=== PATIENT | female | born 1975 | race Caucasian/White ===

== ENCOUNTER 2020-02-20 07:37 | Outpatient (CLI) | payer OTHER, SELFPAY ==
[2020-02-20 07:56] LABS: Basophils Absolute Auto 0.1 K/mm3 (0.0-0.1); Eosinophils Absolute Auto 0.2 K/mm3 (0-0.3); Eosinophils Percent Auto 2.9 % (0-4.4); Hematocrit 42.9 % (37.0-47.0); Hemoglobin 14.4 g/dL (12.0-15.0); Lymphocytes Absolute Auto 2.62 K/mm3 (0.9-3.2); Lymphocytes Percent Auto 38.2 % (18.3-44.2); Mean Corpuscular HGB Conc 33.6 g/dl (32-36); Mean Corpuscular Hemoglobin 32.1 pg (26-34); Mean Corpuscular Volume 95.5 fl (80-100); Mean Platelet Volume 9.7 fl (7.4-10.4); Monocytes Absolute Auto 0.5 K/mm3 (0.1-0.6); Monocytes Percent Auto 7.6 % (2.6-8.5); Neutrophils Absolute Auto 3.4 K/mm3 (1.3-6.7); Neutrophils Percent Auto 50.3 % (45.5-73.1); Platelet Count Result 288 k/mm3 (150-375); Red Blood Count 4.49 M/mm3 (4.2-5.4); Red Cell Distribution Width 12.5 % (11.5-14.5); White Blood Count 6.9 K/mm3 (4.5-10.0)
[2020-02-20 08:08] LABS: Potassium 4.1 mmol/L (3.4-5.0)
[2020-02-20 08:19] LABS: LDL Cholesterol Direct 86 mg/dL
[2020-02-20 08:24] LABS: T4 Thyroxine 9.81 ug/dL (5.53-11.0)
[2020-02-20 08:37] LABS: Alanine Aminotransferase 11 U/L (4-35); Albumin Level 4.4 g/dL (3.5-5.1); Alkaline Phosphatase 72 U/L (38-126); Anion Gap 6 mmol/L (8-16); Aspartate Amino Transferase 20 U/L (14-36); Bilirubin,Total 0.5 mg/dL (0.2-1.3); Blood Urea Nitrogen 10 mg/dL (7-17); Calcium 9.4 mg/dL (8.4-10.2); Carbon Dioxide 29 mmol/L (22-30); Chloride 103 mmol/L (98-107); Cholesterol 161 mg/dL (0-200); Estimated Glomerular Filt Rate > 60; Glucose 100 mg/dL (65-105); HDL Direct 47 mg/dL; Sodium 138 mmol/L (137-145); Triglycerides 92 mg/dL (<150)
[2020-02-20 08:58] LABS: Vitamin D 25 Hydroxy 34.2 ng/mL
[2020-02-28 23:57] LABS: Estradiol, Ultrasensitive <2 pg/mL
== END 2020-02-20 07:38 | disposition home or self-care (01) ==
LOC: ANHLAB 07:39
PROVIDERS: PCP Family Medicine; Visit Provider Obstetrics & Gynecology
DX: R23.2 Flushing (principal); Z78.0 Asymptomatic menopausal state
CPT/HCPCS: 36415; 80053; 80061; 82306; 82670; 84436; 84443; 85025

== ENCOUNTER 2020-08-14 07:12 | Outpatient (CLI) | payer OTHER, SELFPAY ==
--- NOTE | ~2020-08-14 | MM_ITS ---
EXAMINATION: MM screening trace BI w koffi HISTORY: Screening mammogram TECHNIQUE: Craniocaudal and mediolateral oblique 3-D tomosynthesis images were obtained and synthetic 2-D images were generated. Bilateral rotated lateral cc views. CAD analysis was submitted and interp reted. COMPARISON: 05/10/2019 bilateral digital screening mammogram 10/06/2016 ultrasound-guided left cyst aspiration 09/08/2016 bilateral diagnostic digital mammogram and bilateral Limited breast ultrasound examination BREAST PARENCHYMAL COMPOSITION: The breasts are heterogeneously dense, which may obscure small masses . FINDINGS: There is a biopsy marker on the left. History of prior benign left breast biopsy and right cyst aspiration. There is no evidence of suspicious mass, calcification, or architectural distortion to suggest malignancy in either breast. There has been no suspicious interval change. IMPRESSION: 1. No mammographic evidence of malignancy. 2. Recommend routine screening mammography in one year. BI-RADS Category 1: Negative Reviewed, dictated and finalized at location A. 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
== END 2020-08-14 07:13 | disposition home or self-care (01) ==
LOC: ANHIMG 07:14
PROVIDERS: PCP Family Medicine; Visit Provider Obstetrics & Gynecology
DX: Z12.31 Encounter for screening mammogram for malignant neoplasm of breast (principal)
CPT/HCPCS: 77063; 77067

== ENCOUNTER 2021-02-17 11:45 | Outpatient (CLI) | payer OTHER, SELFPAY ==
--- NOTE | ~2021-02-17 | MMUS_ITS ---
EXAMINATION: MM diagnostic trace LT w koffi, US breast LT complete HISTORY: Left nipple pain with yellow discharge TECHNIQUE: Additional 3-D tomosynthesis images of the left breast were performed and synthetic 2-D im ages were generated. CAD analysis was submitted and interpreted. High resolution complete left breast ultrasound was performed. COMPARISON: Comparison to multiple prior studies sequentially, with oldest reviewed study dated 09/23. BREAST PARENCHYMAL COMPOSITION: The breasts are heterogenously dense, which may obscure small masses. FINDINGS: MAMMOGRAPHIC FINDINGS: There are no suspicious masses, calcifications or architectural distortion in the left breast to sugg est malignancy. ULTRASOUND: Complete left breast ultrasound: Normal heterogeneous echotexture without focal solid or cystic mass. IMPRESSION: 1. No evidence for malignancy in the left breast. Follow-up clinical management for nipple discharge recommended. 2. Routine yearly screening mammogram and regular clinical breast examination are recommended. BI-RADS Category 1: Negative Reviewed, dictated and finalized at location A. IMPRESSION: 1. No evidence for malignancy in the left breast. Follow-up clinical management for nipple discharge recommended. 2. Routine yearly screening mammogram and regular clinical breast examination a re recommended. BI-RADS Category 1: Negative
== END 2021-02-17 11:46 | disposition home or self-care (01) ==
LOC: ANHIMG 11:46
PROVIDERS: PCP Family Medicine; Visit Provider Surgery
DX: N64.4 Mastodynia (principal); N64.52 Nipple discharge
CPT/HCPCS: 76641; 77061; 77065; G0279

== ENCOUNTER 2021-09-16 08:30 | Outpatient (CLI) | payer OTHER, SELFPAY ==
--- NOTE | 2021-09-16 11:30 | NEURO_ITS ---
Impression: # Complains of intermittent numbness of upper and lower extremities. # No Carpal Tunnel Syndrome or ulnar neuropathy. # Normal nerve conduction study of upper and lower extremities. # Normal needle/EMG exam. # Clinical correlation recommended. Nerve Conduction Studies Anti Sensory Summary Table Stim Site NR Peak (ms) P-T Amp (?V) Site1 Site2 Delta-P (ms) Dist (cm) Felice (m/s) Left Median Anti Sensory (2-3nd Digit) Wrist 3.0 96.3 Wrist 2-3nd Digit 3.0 14.0 47 Wrist 3.1 96.2 Wrist 2-3nd Digit 3.0 14.0 47 Right Median Anti Sensory (2-3nd Digit) Wrist 2.6 57.7 Wrist 2-3nd Digit 2.6 14.0 54 Wrist 2.8 90.3 Wrist 2-3nd Digit 2.6 14.0 54 Left Radial Anti Sensory (Base 1st Digit) Wrist 2.3 47.7 Wrist Base 1st Digit 2.3 0.0 Right Radial Anti Sensory (Base 1st Digit) Wrist 2.4 62.6 Wrist Base 1st Digit 2.4 0.0 Left Sup Fibular Anti Sensory (Ant Lat Mall) 14 cm 3.6 17.2 14 cm Ant Lat Mall 3.6 16.0 44 Right Sup Fibular Anti Sensory (Ant Lat Mall) 14 cm 3.2 7.4 14 cm Ant Lat Mall 3.2 16.0 50 Left Sural Anti Sensory (Lat Mall) Calf 3.9 17.2 Calf Lat Mall 3.9 16.0 41 Right Sural Anti Sensory (Lat Mall) Calf 3.5 15.8 Calf Lat Mall 3.5 16.0 46 Left Ulnar Anti Sensory (5th Digit) Wrist 2.9 88.8 Wrist 5th Digit 2.9 14.0 48 Right Ulnar Anti Sensory (5th Digit) Wrist 3.0 53.0 Wrist 5th Digit 3.0 14.0 47 Motor Summary Table Stim Site NR Onset (ms) O-P Amp (mV) Site1 Site2 Delta-0 (ms) Dist (cm) Fleice (m/s) Left Median Motor (Abd Poll Brev) Wrist 3.6 8.2 Elbow Wrist 5.4 30.0 56 Elbow 9.0 3.4 Right Median Motor (Abd Poll Brev) Wrist 2.6 6.6 Elbow Wrist 5.0 29.0 58 Elbow 7.6 4.6 Left Peroneal Motor (Vastus Med) Ankle 4.3 3.1 Popit Ankle 8.5 42.0 49 Popit 12.8 2.6 Right Peroneal Motor (Vastus Med) Ankle 5.2 3.0 Popit Ankle 8.1 38.0 47 Popit 13.3 2.3 Left Tibial Motor (Abd [place]os Santos Brev) Ankle 4.5 5.7 Knee Ankle 9.6 43.0 45 Knee 14.1 3.8 Right Tibial Motor (Abd [place] Brev) Ankle 5.4 10.5 Knee Ankle 9.2 42.0 46 Knee 14.6 5.8 Left Ulnar Motor (Abd Dig Minimi) Wrist 2.8 6.1 A Elbow Wrist 4.8 29.0 60 A Elbow 7.6 6.2 Right Ulnar Motor (Abd Dig Minimi) Wrist 2.7 9.5 A Elbow Wrist 5.2 30.0 58 A Elbow 7.9 8.2 F Wave Studies NR F-Lat (ms) L-R F-Lat (ms) Left Median (Mrkrs) (Abd Poll Brev) 27.94 1.51 Right Median (Mrkrs) (Abd Poll Brev) 26.43 1.51 Left Peroneal (Mrkrs) (EDB) 53.67 1.27 Right Peroneal (Mrkrs) (EDB) 54.94 1.27 Left Tibial (Mrkrs) (Abd Hallucis) 54.97 0.34 Right Tibial (Mrkrs) (Abd Hallucis) 55.32 0.34 Left Ulnar (Mrkrs) (Abd Dig Min) 26.16 0.99 Right Ulnar (Mrkrs) (Abd Dig Min) 25.17 0.99 EMG Side Muscle Nerve Root Ins Act Fibs Amp Dur Recrt Comment Right 1stDorInt Ulnar C8-T1 Nml Nml Nml Nml Nml Right Ext Indicis Radial (Post Int) C7-8 Nml Nml Nml Nml Nml Right Ext Digitorum Radial (Post Int) C7-8 Nml Nml Nml Nml Nml Right BrachioRad Radial C5-6 Nml Nml Nml Nml Nml Right PronatorTeres Median C6-7 Nml Nml Nml Nml Nml Right Abd Poll Brev Median C8-T1 Nml Nml Nml Nml Nml Right AntTibialis Dp Br Fibular
== END 2021-09-16 08:31 | disposition home or self-care (01) ==
PROVIDERS: PCP Family Medicine; Visit Provider Family Medicine
DX: R20.0 Anesthesia of skin (principal); M54.2 Cervicalgia
CPT/HCPCS: 95886; 95913

== ENCOUNTER 2022-02-26 09:01 | Outpatient (CLI) | payer OTHER, SELFPAY ==
[2022-02-26 09:37] LABS: Basophils Absolute Auto 0.1 K/mm3 (0.0-0.1); Basophils Percent Auto 0.5 % (0.2-1.2); Eosinophils Absolute Auto 0.1 K/mm3 (0-0.3); Eosinophils Percent Auto 1.5 % (0-4.4); Hematocrit 43.1 % (37.0-47.0); Hemoglobin 14.2 g/dL (12.0-15.0); Immature Granulocyte Absolute 0.02 K/mm3 (0.00-0.031); Immature Granulocyte Percent A 0.2 % (0-0.5); Lymphocytes Absolute Auto 2.84 K/mm3 (0.9-3.2); Lymphocytes Percent Auto 29.7 % (18.3-44.2); Mean Corpuscular HGB Conc 32.9 g/dl (32-36); Mean Corpuscular Hemoglobin 32.5 pg (26-34); Mean Corpuscular Volume 98.6 fl (80-100); Mean Platelet Volume 9.5 fl (7.4-10.4); Monocytes Absolute Auto 0.5 K/mm3 (0.1-0.6); Monocytes Percent Auto 5.5 % (2.6-8.5); Neutrophils Percent Auto 62.6 % (45.5-73.1); Platelet Count Result 257 k/mm3 (150-375); Red Blood Count 4.37 M/mm3 (4.2-5.4); Red Cell Distribution Width 13.2 % (11.5-14.5); White Blood Count 9.6 K/mm3 (4.5-10.0)
[2022-02-26 10:15] LABS: Alanine Aminotransferase 14 U/L (6-35); Albumin Level 4.6 g/dL (3.5-5.1); Alkaline Phosphatase 70 U/L (38-126); Anion Gap 7 mmol/L (8-16); Aspartate Amino Transferase 21 U/L (14-36); Bilirubin,Total 0.3 mg/dL (0.2-1.3); Blood Urea Nitrogen 10 mg/dL (7-17); Calcium 9.3 mg/dL (8.4-10.2); Carbon Dioxide 28 mmol/L (22-30); Chloride 104 mmol/L (98-107); Estimated Glomerular Filt Rate > 60; Glucose 95 mg/dL (65-110); Potassium 4.2 mmol/L (3.4-5.0); Sodium 139 mmol/L (137-145)
[2022-02-26 10:17] LABS: Cholesterol 155 mg/dL (0-200); HDL Direct 64 mg/dL; Triglycerides 90 mg/dL (<150)
[2022-02-26 10:29] LABS: LDL Cholesterol Direct 73 mg/dL
[2022-02-26 10:38] LABS: Hepatitis C Virus Antibody Negative (Negative)
[2022-03-03 13:46] LABS: Vitamin D 1,25 (OH)2 Total 48 pg/mL (18-72); Vitamin D2 1,25 (OH)2 <8 pg/mL; Vitamin D3 1,25 (OH)2 48 pg/mL
== END 2022-02-26 09:02 | disposition home or self-care (01) ==
PROVIDERS: PCP Student in an Organized Health Care Education/Training Program; Visit Provider Student in an Organized Health Care Education/Training Program
DX: Z00.00 Encounter for general adult medical examination without abnormal findings (principal); Z13.220 Encounter for screening for lipoid disorders; Z13.0 Encounter for screening for diseases of the blood and blood-forming organs and certain disorders involving the immune mechanism; Z13.228 Encounter for screening for other metabolic disorders; Z13.29 Encounter for screening for other suspected endocrine disorder; Z11.59 Encounter for screening for other viral diseases
CPT/HCPCS: 36415; 80053; 80061; 82652; 84443; 85025; 86803

== ENCOUNTER 2022-05-20 14:41 | Outpatient (CLI) | payer OTHER, SELFPAY ==
--- NOTE | ~2022-05-20 | DEXA_ITS ---
Bone Density Report Name: EV KENT Age: 46 Sex: Female Ethnicity: White Date of : 1975 Indication: postmenopausal; height loss; hysterectomy; Referring Provider: OTIS SNYDER Study: Bone densitometry was performed. Exam Date: May 20, 2022 Accession number: [id number] Bone Density: Region BMD T-score Z-score Classification AP Spine(L1-L4) 0.789 -2.3 -1.9 Osteopenia Femoral Neck (Left) 0.725 -1.1 -0.7 Osteopenia Total Hip (Left) 0.756 -1.5 -1.2 Osteopenia Femoral Neck (Right) 0.729 -1.1 -0.6 Osteopenia Total Hip (Right) 0.771 -1.4 -1.1 Osteopenia Total Hip Mean 0.764 -1.5 -1.2 Osteopenia World Health Organization criteria for BMD impression classify patients as: Normal (T-score at or above -1.0), Osteopenia (T-score between -1.0 and -2.5), or Osteoporosis (T-score at or below -2.5). 10-year Fracture Risk(1): Major Osteoporotic Fracture 2.5% Hip Fracture 0.3% Reported Risk Factors: [place] (), Neck BMD=0.725, BMI=18.9, smoking (1) FRAX(R) Version 3.08. Fracture probability calculated for an untreated patient. Fracture probability may be lower if the patient has received treatment. Clinical Information Provided by Patient: Smokes Has the following medical conditions: Hysterectomy Patient maximum height was 69.5 Drinks caffeinated beverages Onset of menses at age 12 Number of children 1 Impression: The patient has low bone mass, based on the Total Spine T-score. The patient has an estimated ten-year risk of hip fracture of 0.3% and an estimated ten-year risk of major fracture of 2.5%, based on the WHO FRAX algorithm. The patient has risk factors, including: smoking. Discussion: BONE DENSITY IS LOW AT ONE OR MORE SKELETAL SITES. This patient's lowest T-score is low at one or more skeletal sites. It meets the World Health Organization's (WHO) criteria for ?low bone mass? (T-score between -1.0 and -2.5). The patient's 10-year risk of fracture as calculated by FRAX is less than the threshold where pharmacological therapy is recommended by the National Osteoporosis Foundation (NOF). However, all treatment decisions require clinical judgment and consideration of individual patient factors, including patient preferences, comorbidities, previous drug use, risk factors not captured in the FRAX model (e.g., frailty, falls, vitamin D deficiency, increased bone turnover, interval significant decline in bone density) and possible under or overestimation of fracture risk by FRAX. The patient should follow a healthful lifestyle (good nutrition with adequate calcium and vitamin D, and appropriate weight-bearing exercise). Follow-Up: Consider repeating this study in 2 to 3 years to reassess this patient's status, or sooner if there is some new clinical indication.
== END 2022-05-20 14:42 | disposition home or self-care (01) ==
PROVIDERS: PCP Student in an Organized Health Care Education/Training Program; Visit Provider Obstetrics & Gynecology
DX: R29.890 Loss of height (principal); M85.88 Other specified disorders of bone density and structure, other site; M85.852 Other specified disorders of bone density and structure, left thigh; M85.851 Other specified disorders of bone density and structure, right thigh
CPT/HCPCS: 77080

== ENCOUNTER 2022-05-22 14:06 | Outpatient (CLI) | payer OTHER, SELFPAY ==
--- NOTE | ~2022-05-22 | MM_ITS ---
EXAMINATION: MM screening trace BI w koffi HISTORY: Screening TECHNIQUE: Craniocaudal and mediolateral oblique 3-D tomosynthesis images were obtained and synthetic 2-D images were generated. CAD analysis was submitted and interpreted. COMPARISON: Comparison to multiple prior studies sequentially, with oldest reviewed study dated 09/23. BREAST PARENCHYMAL COMPOSITION: The breasts are extremely dense, which lowers the sensitivity of mamm ography. FINDINGS: There is no evidence of suspicious mass, calcification, or architectural distortion to sugg est malignancy in either breast. There has been no suspicious interval change. IMPRESSION: 1. No mammographic evidence of malignancy. 2. Recommend routine screening mammography in one year. BI-RADS Category 1: Negative Reviewed, dictated and finalized at location A. 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
== END 2022-05-22 14:07 | disposition home or self-care (01) ==
PROVIDERS: PCP Student in an Organized Health Care Education/Training Program; Visit Provider Obstetrics & Gynecology
DX: Z12.31 Encounter for screening mammogram for malignant neoplasm of breast (principal)
CPT/HCPCS: 77063; 77067

== ENCOUNTER 2022-11-22 13:37 | Outpatient (CLI) | payer OTHER, SELFPAY ==
--- NOTE | ~2022-11-22 | XR_ITS ---
EXAM: [id number] DATE: 11/22/2022 13:57 HISTORY: CERVICAL RADICULOPATHY, NON-TRAUMA . COMPARISON: None available. FINDINGS: Craniocervical association and atlantoaxial joint are aligned. No prevertebral soft tissue swelling. Vertebral body heights are maintained. Mild reversal of the cervical lordosis, centered at C5-6. Mild disc space narrowing at C6-7 and C7-T1. Mild multilevel facet arthropathy. IMPRESSION: Mild degenerative disc disease in the lower cervical spine. Mild multilevel cervical spin e facet arthropathy. Reviewed, dictated and finalized at location K. IMPRESSION: Mild degenerative disc disease in the lower cervical spine. Mild mu ltilevel cervical spine facet arthropathy.
== END 2022-11-22 13:38 | disposition home or self-care (01) ==
LOC: ANHIMG 13:41
PROVIDERS: PCP Student in an Organized Health Care Education/Training Program; Visit Provider Student in an Organized Health Care Education/Training Program
DX: M50.123 Cervical disc disorder at C6-C7 level with radiculopathy (principal); M50.13 Cervical disc disorder with radiculopathy, cervicothoracic region
CPT/HCPCS: 72040

== ENCOUNTER 2022-12-14 13:42 | Outpatient (CLI) | payer OTHER, SELFPAY ==
--- NOTE | ~2022-12-14 | MR_ITS ---
EXAMINATION: MR cervical spine wo con DATE: 12/14/2022 14:14 INDICATION: Cervical radiculopathy. TECHNIQUE: Magnetic resonance imaging (MRI) of the cervical spine was performed without intravenous c ontrast. Sequences included sagittal T2-weighted FSE, sagittal T2-weighted FS FSE, sagittal T1-weight ed FSE, axial MERGE, and axial T2-weighted FSE. COMPARISON: Cervical spine radiographs 11/22/2022 FINDINGS: There is 17 degrees levoscoliosis of cervicothoracic spine. Vertebral body heights are norm al. There is moderately decreased disc height at C6-C7. The spinal cord signal intensity is normal. T he following disc levels are specifically discussed: C2-C3: The disc does not extend beyond the endplate margin. There is no uncovertebral joint osteoarth ritis. There is mild bilateral facet joint osteoarthritis. There is no neural foraminal stenosis. The re is no central canal stenosis. C3-C4: The disc does not extend beyond the endplate margin. There is no uncovertebral joint osteoarth ritis. There is mild bilateral facet joint osteoarthritis. There is no neural foraminal stenosis. The re is no central canal stenosis. C4-C5: The disc does not extend beyond the endplate margin. There is no uncovertebral joint osteoarth ritis. There is mild facet joint osteoarthritis. There is no neural foraminal stenosis. There is no c entral canal stenosis. C5-C6: The disc does not extend beyond the endplate margin. There is mild left uncovertebral joint os teoarthritis. There is mild left facet joint osteoarthritis. There is mild left neural foraminal sten osis. There is no central canal stenosis. C6-C7: There is a central extrusion. There is mild bilateral uncovertebral joint osteoarthritis. Ther e is mild right and moderate left facet joint osteoarthritis. There is mild bilateral neural foramina l stenosis. There is mild central canal stenosis. C7-T1: The disc does not extend beyond the endplate margin. There is no uncovertebral joint osteoarth ritis. There is severe right and moderate left facet joint osteoarthritis. There is mild bilateral ne ural foraminal stenosis. There is no central canal stenosis. IMPRESSION: 1. Mild cervical spondylosis. 2. Cervicothoracic levoscoliosis. Reviewed, dictated and finalized at location E.
== END 2022-12-14 13:43 | disposition home or self-care (01) ==
PROVIDERS: PCP Student in an Organized Health Care Education/Training Program; Visit Provider Student in an Organized Health Care Education/Training Program
DX: M54.12 Radiculopathy, cervical region (principal); M43.02 Spondylolysis, cervical region; M41.83 Other forms of scoliosis, cervicothoracic region
CPT/HCPCS: 72141

== ENCOUNTER 2023-03-18 03:39 | Day surgery (SDC) | payer OTHER, SELFPAY ==
[2023-03-08 10:05] VITALS: BMI 21.4
[2023-03-18 10:11] VITALS: BP 102/53; PULSE 73; RESP 16; TEMP 36.2; O2SAT 99
[2023-03-18] MEDS: LACTATED RINGERS 1,000 ML 150 ML IV CONT (10:18)
--- NOTE | 2023-03-18 10:32 | PM.HPGS ---
History of Present Illness History of Present Illness Consent: Risks, benefits, and alternatives have been discussed and questions answered. Patient agrees to proceed with procedure. Chief complaint: hx. colon polyps, personal h/o adenomatous polyp Narrative: Vernell Dwyer is a 47 year old female Presents for screening colonoscopy. Patient's current weight appetite and bowel movements are normal. She denies abdominal pain. She has had no bleeding. Patient has a prior history of colon polyps. In 2005 had adenomatous colon polyp removed. Most recent colonoscopy was 2015. At that time of benign hyperplastic polyp was identified. Patient reports that her weight appetite bowel movements are normal. She denies abdominal pain. She has had no bleeding. Family history noncontributory. Review of Systems Review of Systems: Review of systems noncontributory. FOR[facility]LY [facility] Past Medical History Medical History (Updated 03/18/23 @ 10:34 by Juvenal Garcia MD) Anxiety Vaginal delivery Surgical History Surgical History History of breast biopsy History of tonsillectomy and adenoidectomy History of total hysterectomy Family History Family History Grandparent Hypertension Mother Family history of diabetes mellitus in first degree relative Other Diabetes mellitus Family history of allergic disorder Family history of arthritis Family history of cardiovascular disease Family history of malignant neoplasm Family history of malignant neoplasm of breast Family history of malignant neoplasm of male breast Family history of neuropathy Family history of osteoporosis Social History Social History Smoking packs per day: 0.25 Smoking cigarettes per day: 5.0 Years smoked: 15 Smoking pack-years: 3.75 Smoking status: Former smoker Tobacco type: cigarettes Second hand tobacco smoke exposure: No Smoking end date: 06/06/05 Alcohol intake: current Alcohol use details: very rare use Substance use: never Substance use type: does not use Living arrangements: alone Spiritual care concerns: No Meds Home Medications and Allergies Home Medications Medication Instructions Recorded Confirmed Type alprazolam 0.5 mg tablet (Xanax) 0.5 mg PO QHS PRN Anxiety 04/08/21 03/08/23 History loratadine 10 mg tablet (Claritin) 10 mg PO DAILY 04/08/21 03/08/23 History escitalopram oxalate 10 mg tablet 10 mg PO DAILY 05/12/22 03/08/23 History (Lexapro) estradiol 2 mg tablet 2 mg PO DAILY #90 tabs 06/03/22 03/08/23 Rx ibuprofen 400 mg tablet 400 mg PO BID 03/08/23 03/08/23 History Allergies Allergy/AdvReac Type Severity Reaction Status Date / Time Penicillins Allergy Unknown Unknown Verified 03/18/23 10:10 Sulfa (Sulfonamide Allergy Unknown Unknown Verified 03/18/23 10:10 Antibiotics) sulfanilamide Allergy Unknown Unknown Verified 03/18/23 10:10 CHAIREZ---ANAPHYLAXIS Allergy Severe ANAPHYLAXIS Uncoded 03/18/23 10:10 Vital Signs Vital Signs - 24 hr 03/18/23 10:11 Temperature 97.2 F L Pulse Rate 73 Respiratory Rate 16 Blood Pressure 102/53 L Pulse Oximetry 99 Oxygen Delivery Room Air Exam Narrative: Physical exam reveals patient to be alert. Vital signs stable. HEENT exam is unremarkable. Patient is anicteric. Lungs are clear to auscultation and percussion. Heart is without murmur or extra sounds. Abdomen bowel sounds are present soft nontender with no Organomegaly. Digital external rectal exam normal. Assessment and Plan Assessment and plan (1) History of colon polyps: Code(s): Z86.010 - Personal history of colonic polyps Status: Acute Assessment and Plan: Patient has a history of colon polyps. Plan for surveillance colonoscopy now and consider this at 5 year intervals in the fu
--- NOTE | 2023-03-18 11:08 | WPDANESEPPF ---
Anes - Initial Pre Proc Eval Procedure: Operation Date: 03/18/23 10:30 Proposed Procedures p Colonoscopy - Juvenal Garcia MD Date/Time: 03/18/23 11:08 Surgeon: Juvenal Garcia MD Pre Op Diagnosis: hx. colon polyps, personal h/o adenomatous polyp Patient Data Age: 47 Gender: F Height: 1.75 m Weight: 64.3 kg Last Vital Signs Temp 97.2 F L 03/18/23 10:11 Pulse 73 03/18/23 10:11 Resp 16 03/18/23 10:11 BP 102/53 L 03/18/23 10:11 Pulse Ox 99 03/18/23 10:11 O2 Del Method Room Air 03/18/23 10:11 Allergies Allergy/AdvReac Type Severity Reaction Status Date / Time Penicillins Allergy Unknown Unknown Verified 03/18/23 10:10 Sulfa (Sulfonamide Allergy Unknown Unknown Verified 03/18/23 10:10 Antibiotics) sulfanilamide Allergy Unknown Unknown Verified 03/18/23 10:10 CHAIREZ---ANAPHYLAXIS Allergy Severe ANAPHYLAXIS Uncoded 03/18/23 10:10 Home Medications Medication Instructions Recorded Confirmed Type alprazolam 0.5 mg tablet (Xanax) 0.5 mg PO QHS PRN Anxiety 04/08/21 03/08/23 History loratadine 10 mg tablet (Claritin) 10 mg PO DAILY 04/08/21 03/08/23 History escitalopram oxalate 10 mg tablet 10 mg PO DAILY 05/12/22 03/08/23 History (Lexapro) estradiol 2 mg tablet 2 mg PO DAILY #90 tabs 06/03/22 03/08/23 Rx ibuprofen 400 mg tablet 400 mg PO BID 03/08/23 03/08/23 History Patient hx anesthesia problems: none Family hx anesthesia problems: none Results Review: All pre-operative results and documents have been reviewed as part of the pre-operative evaluation. [facility] Past Medical History Medical History (Updated 03/18/23 @ 10:34 by Juvenal Garcia MD) Anxiety Vaginal delivery Surgical History Surgical History History of breast biopsy History of tonsillectomy and adenoidectomy History of total hysterectomy Family History Family History Grandparent Hypertension Mother Family history of diabetes mellitus in first degree relative Other Diabetes mellitus Family history of allergic disorder Family history of arthritis Family history of cardiovascular disease Family history of malignant neoplasm Family history of malignant neoplasm of breast Family history of malignant neoplasm of male breast Family history of neuropathy Family history of osteoporosis Social History Social History Smoking packs per day: 0.25 Smoking cigarettes per day: 5.0 Years smoked: 15 Smoking pack-years: 3.75 Smoking status: Former smoker Tobacco type: cigarettes Second hand tobacco smoke exposure: No Smoking end date: 06/06/05 Alcohol intake: current Alcohol use details: very rare use Substance use: never Substance use type: does not use Living arrangements: alone Spiritual care concerns: No Anes - Eval Final PreProcedure Day of Procedure 03/18/23 11:08 Patient weight: normal Heart: regular rate and rhythm Lungs: clear to auscultation Airway: Mallampati scale class II Neurological: alert and oriented Last oral intake: >/= 8 hours ASA classification: II Emergent: no Anesthetic plan: proceed Anesthesia type and monitoring: general GIVS and standard monitoring Results Review: All pre-operative results and documents have been reviewed as part of the pre-operative evaluation. Informed Consent: The patient's anesthetic plan and its attendant risks and benefits were discussed with the patient/family/POA. Questions were solicited and answers provided to the satisfaction of the patient/family/POA.
[2023-03-18 11:17] VITALS: BP 100/94; PULSE 78; RESP 16; O2SAT 100
[2023-03-18 11:27] VITALS: BP 102/61; PULSE 70; RESP 18; O2SAT 100
[2023-03-18 11:37] VITALS: BP 109/64; PULSE 73; RESP 17; O2SAT 100
== END 2023-03-18 11:42 | disposition home or self-care (01) ==
PROVIDERS: PCP Student in an Organized Health Care Education/Training Program; Visit Provider Internal Medicine Gastroenterology
PROC: 0DJD8ZZ Inspection of Lower Intestinal Tract, Via Natural or Artificial Opening Endoscopic (ICD-10-PCS; CPT 45378; principal; 2023-03-18 10:30)
DX: Z12.11 Encounter for screening for malignant neoplasm of colon (principal); K63.5 Polyp of colon; K64.8 Other hemorrhoids; K64.4 Residual hemorrhoidal skin tags; F41.9 Anxiety disorder, unspecified; Z87.891 Personal history of nicotine dependence
CPT/HCPCS: 45385; 88305; J2704; J7120

== ENCOUNTER 2023-04-07 11:00 | Outpatient (RCR) | payer OTHER, SELFPAY ==
--- NOTE | 2023-03-07 16:01 | OPREHPOC ---
Outpatient Therapy Plan of Care This is a Multidisciplinary Plan of Care that may contain components documented by all disciplines (PT, OT, and ST.) PT Problem 1 PT Problem #1 Knowledge Deficit PT Goal 1 Goal [place] with postural exercise Target Visit 8 PT Problem 2 PT Problem #2 Impaired Range of Motion PT Goal 1 Goal Demonstrate 70 degrees of cervical rotation bilaterally to assist with facet glide with functional cervical range of motion Target Visit 8 PT Goal 2 Goal Demonstrate 40 degrees of cervical extension indicating improved postural facet glide PT Problem 3 PT Problem #3 Pain PT Goal 1 Goal Reports 2/10 greatest pain with sleeping at night for improve quality of life Target Visit 8 PT Problem 4 PT Problem #4 Impaired Functional Mobil PT Goal 1 Goal Patient will be able to perform shoulder girdle strengthening with no cueing for proper posture Target Visit 8
--- NOTE | 2023-03-07 16:02 | PTOPEVAL1 ---
Assessment and note entered by Matty Khan, PT Evaluation Information Assessment Status Evaluation Diagnosis Cervical radiculopathy, Neck pain, UE weakness Onset 03/06/21 Subjective Information Reports that she is having a lot of trouble with activity. She is mostly working and then resting at home. She had an MRI performed which indicated stenosis. She has cortisone injection on 03/24/23. She feels most of her pain in the neck and shoulder but occasionally has pain and weakness in her left hand. Reported Pain Level Pain Score 6: Self Report Assessment PT Clinical Summary Patient presents with signs and symptoms consistent with cervical radiculopathy. She had a very positive reaction with twitch response on needling of left upper trapezius. He objective measures also indicate poor closing of L cervical facets as well and will be indicated in treatment moving forward. She will benefit from skilled therapy to address cervical ROM, postural, and shoulder girdle weakness. Plan of Care Interventions Electrical Stimulation,Hot Pack/Cold Pack,Manual Therapy,Neuro Re-education,Therapeutic Activities, Therapeutic Exercise,Other Other Interventions Dry Needling PT Services Indicated Yes Treatment Frequency and 2x/week for 4 weeks Duration These treatments will address the objective and functional deficits as defined above. The patient will be advanced safely and appropriately in order for the patient to progress towards his/her prior level of function. Additional exercises will be introduced and as well as a comprehensive home exercise program upon discharge, if needed, ?to ensure carryover of functional gains achieved in the clinic. This treatment plan has been reviewed and agreement upon by the patient.
--- NOTE | 2023-04-07 13:16 | OPREHPOC ---
Outpatient Therapy Plan of Care This is a Multidisciplinary Plan of Care that may contain components documented by all disciplines (PT, OT, and ST.) PT Problem 1 PT Problem #1 Knowledge Deficit PT Goal 1 Goal [place] with postural exercise Target Visit 8 Progress Met PT Problem 2 PT Problem #2 Impaired Range of Motion PT Goal 1 Goal Demonstrate 70 degrees of cervical rotation bilaterally to assist with facet glide with functional cervical range of motion Target Visit 8 Progress Met PT Goal 2 Goal Demonstrate 40 degrees of cervical extension indicating improved postural facet glide Progress Met PT Problem 3 PT Problem #3 Pain PT Goal 1 Goal Reports 2/10 greatest pain with sleeping at night for improve quality of life Target Visit 8 Progress Met PT Problem 4 PT Problem #4 Impaired Functional Mobil PT Goal 1 Goal Patient will be able to perform shoulder girdle strengthening with no cueing for proper posture Target Visit 8 Progress Met
--- NOTE | 2023-04-07 13:16 | PTOPDC ---
Assessment and note entered by Matty Khan, PT Discharge Information Assessment Status Discharge Diagnosis Cervical radiculopathy, Neck pain, UE weakness Onset 03/06/21 Subjective Information Patient reports that overall she is feeling a lot better. She has noted improved cervical ROM when driving which was a major personal goal. Overall no concerns right now and feels comfortable with [facility]. Reported Pain Level Pain Score 2: Self Report Assessment PT Clinical Summary Patient met all goals for therapy at this time and is suitable for D/C to [facility]. Plan of Care PT Services Indicated No
== END 2023-04-07 14:41 | disposition home or self-care (01) ==
LOC: ANHPT 11:00
PROVIDERS: PCP Student in an Organized Health Care Education/Training Program
DX: M54.12 Radiculopathy, cervical region (principal)
CPT/HCPCS: 97014; 97110; 97140; 97161; 97530; G0283

== ENCOUNTER 2023-05-03 08:25 | Outpatient (CLI) | payer OTHER, SELFPAY ==
[2023-05-03 09:06] LABS: Basophils Absolute Auto 0.1 K/mm3 (0.0-0.1); Basophils Percent Auto 0.8 % (0.2-1.2); Eosinophils Absolute Auto 0.1 K/mm3 (0-0.3); Eosinophils Percent Auto 1.7 % (0-4.4); Hematocrit 43.7 % (37.0-47.0); Hemoglobin 14.1 g/dL (12.0-15.0); Immature Granulocyte Absolute 0.03 K/mm3 (0.00-0.031); Immature Granulocyte Percent A 0.4 % (0-0.5); Lymphocytes Absolute Auto 2.27 K/mm3 (0.9-3.2); Lymphocytes Percent Auto 30.3 % (18.3-44.2); Mean Corpuscular HGB Conc 32.3 g/dl (32-36); Mean Corpuscular Hemoglobin 31.3 pg (26-34); Mean Corpuscular Volume 96.9 fl (80-100); Monocytes Absolute Auto 0.5 K/mm3 (0.1-0.6); Monocytes Percent Auto 7.1 % (2.6-8.5); Neutrophils Absolute Auto 4.5 K/mm3 (1.3-6.7); Neutrophils Percent Auto 59.7 % (45.5-73.1); Platelet Count Result 266 k/mm3 (150-375); Red Blood Count 4.51 M/mm3 (4.2-5.4); Red Cell Distribution Width 12.5 % (11.5-14.5); White Blood Count 7.5 K/mm3 (4.5-10.0)
[2023-05-03 09:22] LABS: Alanine Aminotransferase 19 U/L (6-35); Albumin Level 4.4 g/dL (3.5-5.1); Alkaline Phosphatase 69 U/L (38-126); Anion Gap 7 mmol/L (8-16); Aspartate Amino Transferase 30 U/L (14-36); Bilirubin,Total 0.5 mg/dL (0.2-1.3); Blood Urea Nitrogen 10 mg/dL (7-17); Carbon Dioxide 28 mmol/L (22-30); Chloride 103 mmol/L (98-107); Cholesterol 218 mg/dL (0-200); Estimated Glomerular Filt Rate 60; Glucose 93 mg/dL (65-110); HDL Direct 66 mg/dL; Potassium 4.2 mmol/L (3.4-5.0); Sodium 138 mmol/L (137-145); Triglycerides 169 mg/dL (<150)
[2023-05-03 09:33] LABS: LDL Cholesterol Direct 108 mg/dL
[2023-05-03 10:02] LABS: Vitamin D 25 Hydroxy 18.5 ng/mL
== END 2023-05-03 08:26 | disposition home or self-care (01) ==
PROVIDERS: PCP Student in an Organized Health Care Education/Training Program; Visit Provider Student in an Organized Health Care Education/Training Program
DX: Z13.220 Encounter for screening for lipoid disorders (principal); Z13.29 Encounter for screening for other suspected endocrine disorder; Z13.228 Encounter for screening for other metabolic disorders; Z13.0 Encounter for screening for diseases of the blood and blood-forming organs and certain disorders involving the immune mechanism
CPT/HCPCS: 36415; 80053; 80061; 82306; 84443; 85025

== ENCOUNTER 2023-06-25 14:08 | Emergency (ER) | payer OTHER, SELFPAY ==
[2023-06-25 14:15] VITALS: BP 92/58; PULSE 81; RESP 16; TEMP 36.8; O2SAT 98
--- NOTE | 2023-06-25 14:15 | ED.URI ---
HPI - URI/Sore Throat General Chief Complaint: Upper Respiratory Infection Stated Complaint: Sinus Time Seen by Provider: 06/25/23 14:15 Source: patient Mode of arrival: ambulatory Limitations: no limitations History of Present Illness HPI Narrative: 47 yo F presents with c/o congestion, sinus pressure, sore throat, PND, dry cough, fatigue and low grade fever for 5 days. Covid and flu exposure at work. Deneis chest pain or shortness of breath. No nausea vomiting diarrhea. Taking [id number] medications to treat symptoms. All systems reviewed and negative except as noted above. Related Data Home Medications Medication Instructions Recorded Confirmed alprazolam 0.5 mg tablet (Xanax) 0.5 mg PO QHS PRN Anxiety 04/08/21 06/25/23 loratadine 10 mg tablet (Claritin) 10 mg PO DAILY 04/08/21 06/25/23 escitalopram oxalate 10 mg tablet 10 mg PO DAILY 05/12/22 06/25/23 (Lexapro) ibuprofen 400 mg tablet 400 mg PO BID 03/08/23 06/25/23 cholecalciferol (vitamin D3) 50 50 mcg PO DAILY 05/18/23 06/25/23 mcg (2,000 unit) capsule Allergies Allergy/AdvReac Type Severity Reaction Status Date / Time Penicillins Allergy Unknown Unknown Verified 06/25/23 14:11 Sulfa (Sulfonamide Allergy Unknown Unknown Verified 06/25/23 14:11 Antibiotics) sulfanilamide Allergy Unknown Unknown Verified 06/25/23 14:11 CHAIREZ---ANAPHYLAXIS Allergy Severe ANAPHYLAXIS Uncoded 06/25/23 14:11 Review of Systems Review of Systems: CONSTITUTIONAL: reports, fatigue fever. Denies chills, or sweats. EYES: Denies visual changes, redness, or discharge. ENT: Reports rhinorrhea, congestion, sore throat. Denies otalgia. CARDIOVASCULAR: Denies chest pain, palpitations, or edema. RESPIRATORY: reportss cough. Denies dyspnea. GASTROINTESTINAL: Denies abdominal pain, nausea, vomiting, or diarrhea. GENITOURINARY: Denies dysuria or hematuria. SKIN: Denies rash or itching. MUSCULOSKELETAL: Denies back pain, joint pain, or myalgia. NEUROLOGIC: Denies headache, numbness, or weakness. PSYCHIATRIC: Denies anxiety or depression. All other systems reviewed are negative, except as documented in HPI. PMFSH Past Medical History Medical History (Updated 06/25/23 @ 14:43 by Gianna Yin NP) Anxiety Vaginal delivery Surgical History Surgical History History of breast biopsy History of tonsillectomy and adenoidectomy History of total hysterectomy Family History Family History Grandparent Hypertension Mother Family history of diabetes mellitus in first degree relative Other Diabetes mellitus Family history of allergic disorder Family history of arthritis Family history of cardiovascular disease Family history of malignant neoplasm Family history of malignant neoplasm of breast Family history of malignant neoplasm of male breast Family history of neuropathy Family history of osteoporosis Social History Social History Smoking packs per day: 0.25 Smoking cigarettes per day: 5.0 Years smoked: 15 Smoking pack-years: 3.75 Smoking status: Former smoker Tobacco type: cigarettes Second hand tobacco smoke exposure: No Smoking end date: 06/06/05 Alcohol intake: current Alcohol use details: very rare use Substance use: never Substance use type: does not use Lack of Transportation: No Lack of Food: Never True Current Housing: I Have Housing Concerned About Future Housing: No Difficulty Paying Gas/Electric Bills: No Difficulty Paying for Meds: No Currently Unemployed: No Living arrangements: alone Occupation/Education: occupation 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
== END 2023-06-25 14:45 | disposition home or self-care (01) ==
PROVIDERS: Emergency Provider Nurse Practitioner Family; PCP Student in an Organized Health Care Education/Training Program
DX: J06.9 Acute upper respiratory infection, unspecified (principal); Z20.822 Contact with and (suspected) exposure to COVID-19; Z87.891 Personal history of nicotine dependence; F41.9 Anxiety disorder, unspecified
CPT/HCPCS: 87426; 87804; 99213; G0463

== ENCOUNTER 2023-08-08 11:00 | Outpatient (CLI) | payer OTHER, SELFPAY ==
--- NOTE | ~2023-08-08 | XR_ITS ---
EXAMINATION: XR hip LT 2V w AP pelvis DATE: 08/08/2023 11:18 INDICATION: Left hip pain. TECHNIQUE: An anteroposterior view of the pelvis and 2 views of left hip were obtained. COMPARISON: None. FINDINGS: Bone alignment is normal. No fracture. Joint spaces are normal. IMPRESSION: 1. Normal pelvis and left hip. Reviewed, dictated and finalized at location E. [employer]
== END 2023-08-08 11:01 | disposition home or self-care (01) ==
PROVIDERS: PCP Student in an Organized Health Care Education/Training Program; Visit Provider Student in an Organized Health Care Education/Training Program
DX: M25.552 Pain in left hip (principal)
CPT/HCPCS: 73502

== ENCOUNTER 2023-08-09 08:34 | Outpatient (CLI) | payer OTHER, SELFPAY ==
[2023-08-09 09:06] LABS: CRP < 0.5 mg/dL (<1.0)
[2023-08-09 09:18] LABS: Rheumatoid Factor < 12.0 IU/ML (<12)
[2023-08-09 10:35] LABS: Erythrocyte Sedimentation Rate 16 mm/hr (0-20)
[2023-08-11 21:50] LABS: Cyclic Citrullinated Peptide <16 Units (<20)
[2023-08-11 23:33] LABS: ANA Cascade Screen Negative (Negative)
== END 2023-08-09 08:35 | disposition home or self-care (01) ==
LOC: ANHLAB 08:37
PROVIDERS: PCP Student in an Organized Health Care Education/Training Program; Visit Provider Student in an Organized Health Care Education/Training Program
DX: R68.2 Dry mouth, unspecified (principal); H04.129 Dry eye syndrome of unspecified lacrimal gland
CPT/HCPCS: 36415; 85652; 86038; 86140; 86200; 86225; 86235; 86364; 86430

== ENCOUNTER 2023-08-22 15:45 | Outpatient (RCR) | payer OTHER, SELFPAY ==
--- NOTE | 2023-06-02 13:46 | PTOPEVAL1 ---
Assessment and note entered by Matty Khan, PT Evaluation Information Assessment Status Evaluation Diagnosis Cervical radiculopathy Onset 05/19/23 Subjective Information Reports that she has been having some recurring pain from last time. Symptoms are similar and primarily on left side. Feeling some weakness in left hand. She is also having trouble sleeping at night. Feels that she was doing so well after therapy prior that she did too much too soon. She has been taking Tyleno and Ibuprophen for pain. Reported Pain Level Pain Score 5: Self Report Assessment PT Clinical Summary Patient presents with decreased cervical mobility leading to decreased quantity and quality of sleep . Pain also noted into shoulder with notable weakness to rotator cuff group. She will benefit from skilled therapy to address these deficits for improved quality of life and functional cervical mobility and shoulder strength. Plan of Care Interventions Electrical Stimulation,Manual Therapy,Mechanical Traction,Neuro Re-education,Therapeutic Activities ,Therapeutic Exercise PT Services Indicated Yes These treatments will address the objective and functional deficits as defined above. The patient will be advanced safely and appropriately in order for the patient to progress towards his/her prior level of function. Additional exercises will be introduced and as well as a comprehensive home exercise program upon discharge, if needed, ?to ensure carryover of functional gains achieved in the clinic. This treatment plan has been reviewed and agreement upon by the patient.
--- NOTE | 2023-06-02 13:47 | OPREHPOC ---
Outpatient Therapy Plan of Care This is a Multidisciplinary Plan of Care that may contain components documented by all disciplines (PT, OT, and ST.) PT Problem 1 PT Problem #1 Knowledge Deficit PT Goal 1 Goal Independent with HEP Target Visit 4 PT Problem 2 PT Problem #2 Pain PT Goal 1 Goal Report pain no greater than 1/10 to prevent loss of sleep Target Visit 8 PT Problem 3 PT Problem #3 Impaired Range of Motion PT Goal 1 Goal Demonstrate 70 degrees of symmetrical cervical rotation indicating proper facet glide Target Visit 8 PT Goal 2 Goal Improve chung cervical sidebending to 40 degrees to improve facet glide Target Visit 8 PT Problem 4 PT Problem #4 Impaired Strength PT Goal 1 Goal Improve L shoulder External Rotation strength to 4 +/5 to improve shoulder stability for ADLs Target Visit 8
--- NOTE | 2023-06-27 12:51 | PCPTNOTE ---
Pt cancelled appt today due to illness.
--- NOTE | 2023-07-07 15:57 | PTOPPROG ---
Assessment and note entered by Matty Khan, PT Evaluation Information Assessment Status Progress Diagnosis Cervical radiculopathy Onset 05/19/23 Subjective Information Reports that she was originally doing very well but has seen some regression over the past couple of weeks. Feels that the combination of injections and therapy have really helped but she is seeing some recurring headaches. Most headaches continue to feel tension in nature. Would like to continue therapy as she feels it has been effective. Assessment PT Clinical Summary Patient as seen some progress, mostly subjective in nature at this time. We continue to emphasize soft tissue mobility and postural strengthening at this time. Overall we have seen progress but would like o be more consistent and frequent. Will continue to benefit from skilled therapy to reach retirement goals. Plan of Care Interventions Electrical Stimulation,Manual Therapy,Mechanical Traction,Neuro Re-education,Therapeutic Activities ,Therapeutic Exercise PT Services Indicated Yes These treatments will address the objective and functional deficits as defined above. The patient will be advanced safely and appropriately in order for the patient to progress towards his/her prior level of function. Additional exercises will be introduced and as well as a comprehensive home exercise program upon discharge, if needed, ?to ensure carryover of functional gains achieved in the clinic. This treatment plan has been reviewed and agreement upon by the patient.
--- NOTE | 2023-07-07 15:57 | OPREHPOC ---
Outpatient Therapy Plan of Care This is a Multidisciplinary Plan of Care that may contain components documented by all disciplines (PT, OT, and ST.) PT Problem 1 PT Problem #1 Knowledge Deficit PT Goal 1 Goal Independent with HEP Target Visit 4 Progress Met PT Problem 2 PT Problem #2 Pain PT Goal 1 Goal Report pain no greater than 1/10 to prevent loss of sleep Target Visit 8 Progress Partially Met Comment Improved but still lacking PT Problem 3 PT Problem #3 Impaired Range of Motion PT Goal 1 Goal Demonstrate 70 degrees of symmetrical cervical rotation indicating proper facet glide Target Visit 16 Progress Partially Met PT Goal 2 Goal Improve chung cervical sidebending to 40 degrees to improve facet glide Target Visit 16 Progress Partially Met PT Problem 4 PT Problem #4 Impaired Strength PT Goal 1 Goal Improve L shoulder External Rotation strength to 4 +/5 to improve shoulder stability for ADLs Target Visit 16 Progress Partially Met Comment Still demonstrating isolated weakness
--- NOTE | 2023-08-01 14:16 | PCPTNOTE ---
Patient cancelled today's visit secondary to illness
--- NOTE | 2023-08-15 17:20 | PTOPPROG ---
Assessment and note entered by Matty Khan, PT Evaluation Information Assessment Status Progress Diagnosis Cervical radiculopathy, L Hip pain Onset 05/19/23 Subjective Information Patient reports that she still has occasional scapular pain but has seen some improvement in mobility and pain. She has recently been having a lot of pain with walking and mobility after initiating ambulation. Reports that she has been instructed to initiate therapy on her hip to help address physical issues. Assessment PT Clinical Summary Patient has seen continued progress with cervical issues. She recently has had episodic pain in hip that has left her with painful hip motion multidirectional. She will benefit form skilled therapy to integrate hip strengthening and mobility into HEP and exercise routine to maximize functional and reduce functional pain. Plan of Care Interventions Electrical Stimulation,Manual Therapy,Mechanical Traction,Neuro Re-education,Therapeutic Activities ,Therapeutic Exercise PT Services Indicated Yes These treatments will address the objective and functional deficits as defined above. The patient will be advanced safely and appropriately in order for the patient to progress towards his/her prior level of function. Additional exercises will be introduced and as well as a comprehensive home exercise program upon discharge, if needed, ?to ensure carryover of functional gains achieved in the clinic. This treatment plan has been reviewed and agreement upon by the patient.
--- NOTE | 2023-08-15 17:20 | OPREHPOC ---
Outpatient Therapy Plan of Care This is a Multidisciplinary Plan of Care that may contain components documented by all disciplines (PT, OT, and ST.) PT Problem 1 PT Problem #1 Knowledge Deficit PT Goal 1 Goal Independent with HEP Target Visit 4 Progress Met PT Problem 2 PT Problem #2 Pain PT Goal 1 Goal Report pain no greater than 1/10 to prevent loss of sleep Target Visit 8 Progress Partially Met Comment Improved but still lacking PT Problem 3 PT Problem #3 Impaired Range of Motion PT Goal 1 Goal Demonstrate 70 degrees of symmetrical cervical rotation indicating proper facet glide Target Visit 24 Progress Partially Met PT Goal 2 Goal Improve chung cervical sidebending to 40 degrees to improve facet glide Target Visit 24 Progress Partially Met PT Problem 4 PT Problem #4 Impaired Strength PT Goal 1 Goal Improve L shoulder External Rotation strength to 4 +/5 to improve shoulder stbility for ADLs Target Visit 24 Progress Partially Met Comment Still demonstrating isolated weakness PT Goal 1 Goal Demonstrate 45 degrees of non painful lef hip abduction Target Visit 24 PT Goal 2 Goal Patient will demonstrate no tenderness to palpation of left lateral hip Target Visit 24
--- NOTE | 2023-09-26 13:24 | PCPTNOTE ---
Patient Plan of Care transferred to #[id number]
== END 2023-08-26 09:40 | disposition home or self-care (01) ==
LOC: ANHPT 15:45
PROVIDERS: PCP Student in an Organized Health Care Education/Training Program
DX: M54.12 Radiculopathy, cervical region (principal)
CPT/HCPCS: 97110; 97140; 97161; 97530

== ENCOUNTER 2023-08-30 07:53 | Outpatient (CLI) | payer OTHER, SELFPAY ==
--- NOTE | ~2023-08-30 | MM_ITS ---
EXAMINATION: MM screening trace BI w koffi HISTORY: Screening mammogram TECHNIQUE: Craniocaudal and mediolateral oblique 3-D tomosynthesis images were obtained and synthetic 2-D images were generated. CAD analysis was submitted and interpreted. COMPARISON: 05/22/2022 bilateral screening mammogram 02/17/2021 diagnostic left mammogram and complete left breast ultrasound examination 08/14/2020 bilateral screening mammogram BREAST PARENCHYMAL COMPOSITION: The breasts are heterogeneously dense, which may obscure small masses . FINDINGS: Biopsy marker on the left; history of prior benign left breast biopsy. There is no evidence of suspicious mass, calcification, or architectural distortion to suggest malignancy in either breas t. There has been no suspicious interval change. IMPRESSION: 1. No mammographic evidence of malignancy. 2. Recommend routine screening mammography in one year. BI-RADS Category 1: Negative Reviewed, dictated and finalized at location A.
== END 2023-08-30 07:54 | disposition home or self-care (01) ==
PROVIDERS: PCP Student in an Organized Health Care Education/Training Program; Visit Provider Obstetrics & Gynecology
DX: Z12.31 Encounter for screening mammogram for malignant neoplasm of breast (principal)
CPT/HCPCS: 77063; 77067

== ENCOUNTER 2023-10-10 14:30 | Outpatient (RCR) | payer OTHER, SELFPAY ==
--- NOTE | 2023-09-26 13:25 | PCPTNOTE ---
Patient Plan of Care transferred from #[id number]
--- NOTE | 2023-10-10 16:19 | OPREHPOC ---
Outpatient Therapy Plan of Care This is a Multidisciplinary Plan of Care that may contain components documented by all disciplines (PT, OT, and ST.) PT Problem 1 PT Problem #1 Knowledge Deficit PT Goal 1 Goal Independent with HEP Target Visit 4 Progress Met PT Problem 2 PT Problem #2 Pain PT Goal 1 Goal Report pain no greater than 1/10 to prevent loss of sleep Target Visit 8 Progress Partially Met Comment Improved but still lacking PT Problem 3 PT Problem #3 Impaired Range of Motion PT Goal 1 Goal Demonstrate 70 degrees of symmetrical cervical rotation indicating proper facet glide Target Visit 24 Progress Not Met PT Goal 2 Goal Improve chung cervical sidebending to 40 degrees to improve facet glide Target Visit 24 Progress Not Met PT Problem 4 PT Problem #4 Impaired Strength PT Goal 1 Goal Improve L shoulder External Rotation strength to 4 +/5 to improve shoulder stbility for ADLs Target Visit 24 Progress Partially Met Comment Still demonstrating isolated weakness PT Goal 1 Goal Demonstrate 45 degrees of non painful lef hip abduction Target Visit 24 Progress Met PT Goal 2 Goal Patient will demonstrate no tenderness to palpation of left lateral hip Target Visit 24 Progress Met
--- NOTE | 2023-10-10 16:19 | PTOPDC ---
Assessment and note entered by Matty Khan, PT Evaluation Information Assessment Status Progress Diagnosis Cervical radiculopathy Onset 05/19/23 Subjective Information Neck continues to have good days ad bad days. SI work has seemed to help her back and hip a lot at this point. Overall feeling better with therapy but still has some bad days. Plans to take a break from therapy now that she is feeling a bit better to continue to implement HEP. Assessment PT Clinical Summary Patient had seen improvement in cervical motion and hip mobility reducing pain in both sites. She has shown some consistent ROM deficits in cervical rotation and side bending which appear to possibly be structural in nature at this time. Patient feels overall she is ready for discharge and will continue HEP as instructed for fpc management. Plan of Care PT Services Indicated D/C to HEP
== END 2023-10-11 09:08 | disposition home or self-care (01) ==
LOC: ANHPT 14:30
PROVIDERS: PCP Student in an Organized Health Care Education/Training Program
DX: M54.12 Radiculopathy, cervical region (principal)
CPT/HCPCS: 97012; 97014; 97110; 97140; 97530; G0283

== ENCOUNTER 2024-05-25 07:54 | Outpatient (CLI) | payer OTHER, SELFPAY ==
[2024-05-25 08:20] LABS: Basophils Absolute Auto 0.1 K/mm3 (0.0-0.1); Basophils Percent Auto 0.7 % (0.2-1.2); Eosinophils Absolute Auto 0.2 K/mm3 (0-0.3); Eosinophils Percent Auto 2.3 % (0-4.4); Hematocrit 40.9 % (37.0-47.0); Hemoglobin 13.7 g/dL (12.0-15.0); Immature Granulocyte Absolute 0.01 K/mm3 (0.00-0.031); Immature Granulocyte Percent A 0.1 % (0-0.5); Lymphocytes Percent Auto 26.8 % (18.3-44.2); Mean Corpuscular HGB Conc 33.5 g/dl (32-36); Mean Corpuscular Hemoglobin 33.7 pg (26-34); Mean Corpuscular Volume 100.5 fl (80-100); Mean Platelet Volume 9.6 fl (7.4-10.4); Monocytes Absolute Auto 0.4 K/mm3 (0.1-0.6); Monocytes Percent Auto 6.2 % (2.6-8.5); Neutrophils Absolute Auto 4.5 K/mm3 (1.3-6.7); Neutrophils Percent Auto 63.9 % (45.5-73.1); Platelet Count Result 271 k/mm3 (150-375); Red Blood Count 4.07 M/mm3 (4.2-5.4); Red Cell Distribution Width 13.5 % (11.5-14.5); White Blood Count 7.1 K/mm3 (4.5-10.0)
[2024-05-25 08:28] LABS: Alanine Aminotransferase 19 U/L (6-35); Albumin Level 4.2 g/dL (3.5-5.1); Alkaline Phosphatase 70 U/L (38-126); Anion Gap 2 mmol/L (4-12); Aspartate Amino Transferase 27 U/L (14-36); Bilirubin,Total 0.5 mg/dL (0.2-1.3); Blood Urea Nitrogen 16 mg/dL (7-17); Calcium 8.9 mg/dL (8.4-10.2); Carbon Dioxide 29 mmol/L (22-30); Chloride 106 mmol/L (98-107); Cholesterol 223 mg/dL (0-200); Estimated Glomerular Filt Rate 59; Glucose 96 mg/dL (65-110); HDL Direct 60 mg/dL; Potassium 3.9 mmol/L (3.4-5.0); Sodium 137 mmol/L (137-145); Triglycerides 172 mg/dL (<150)
[2024-05-25 08:39] LABS: LDL Cholesterol Direct 115 mg/dL
[2024-05-25 11:07] LABS: Vitamin D 25 Hydroxy 21.1 ng/mL
== END 2024-05-25 07:55 | disposition home or self-care (01) ==
LOC: ANHLAB 07:56
PROVIDERS: PCP Student in an Organized Health Care Education/Training Program; Visit Provider Student in an Organized Health Care Education/Training Program
DX: Z00.00 Encounter for general adult medical examination without abnormal findings (principal); E55.9 Vitamin D deficiency, unspecified; Z13.220 Encounter for screening for lipoid disorders; Z13.29 Encounter for screening for other suspected endocrine disorder; Z13.228 Encounter for screening for other metabolic disorders; Z13.0 Encounter for screening for diseases of the blood and blood-forming organs and certain disorders involving the immune mechanism
CPT/HCPCS: 36415; 80053; 80061; 82306; 84443; 85025

== ENCOUNTER 2024-06-29 14:31 | Emergency (ER) | payer OTHER, SELFPAY ==
--- NOTE | 2024-06-29 14:37 | ED.URI ---
HPI - URI/Sore Throat General Chief Complaint: Upper Respiratory Infection Stated Complaint: cough stomach rash fever Time Seen by Provider: 06/29/24 14:33 Source: patient Mode of arrival: ambulatory Limitations: no limitations History of Present Illness HPI Narrative: Patient is a 48-year-old female who presents with 1 week of cough, congestion and sinus pressure. Patient states in the beginning she had a fever that has since resolved. Patient reports 4 days ago rash appeared on trunk. Denies any itching or pain rash. Related Data Home Medications ?Medication ?Instructions ?Recorded ?Confirmed ?Last Taken ?Type alprazolam 0.5 mg tablet (Xanax) 0.5 mg PO QHS PRN Anxiety 04/08/21 06/25/23 Unknown History loratadine 10 mg tablet (Claritin) 10 mg PO DAILY 04/08/21 06/25/23 Unknown History escitalopram oxalate 10 mg tablet 10 mg PO DAILY 05/12/22 06/25/23 Unknown History (Lexapro) ibuprofen 400 mg tablet 400 mg PO BID 03/08/23 06/25/23 Unknown History cholecalciferol (vitamin D3) 50 50 mcg PO DAILY 05/18/23 06/25/23 Unknown History mcg (2,000 unit) capsule Allergies Allergy/AdvReac Type Severity Reaction Status Date / Time Penicillins Allergy Unknown Unknown Verified 06/29/24 14:46 Sulfa (Sulfonamide Allergy Unknown Unknown Verified 06/29/24 14:46 Antibiotics) sulfanilamide Allergy Unknown Unknown Verified 06/29/24 14:46 CHAIREZ---ANAPHYLAXIS Allergy Severe ANAPHYLAXIS Uncoded 06/25/23 14:11 Review of Systems Review of Systems: All systems reviewed & are unremarkable except as noted in HPI and below Constitutional: Constitutional: Denies body ache(s), Denies chills, Denies fatigue, Denies fever(s), Denies headache(s), Denies malaise and Denies weakness Eyes: Eyes: Denies blurry vision, Denies itchy eyes and Denies loss of vision ENT: Denies otalgia, Denies headache(s), Reports nasal congestion, Denies sinus pain, Reports sinus pressure and Denies sore throat Cardiovascular: Cardiovascular: Denies chest pain, Denies irregular heart rhythm and Denies dyspnea Respiratory: Respiratory: Reports cough and Denies dyspnea Gastrointestinal: Gastrointestinal: Denies abdominal pain, Denies diarrhea, Denies nausea and Denies vomiting Musculoskeletal: Musculoskeletal: Denies back pain, Denies myalgias and Denies arthralgias Integumentary/Breasts: Skin/Breast: Denies pruritus and Denies rash Neurologic: Denies headache(s), Denies loss of vision and Denies weakness Psychiatric: Psychiatric: Reports no additional psychiatric complaints Endocrine: Endocrine: Denies fatigue Allergic/Immunologic: Allergic/Immunologic: Denies itchy eyes PMFSH Past Medical History Medical History Anxiety Vaginal delivery Surgical History Surgical History History of breast biopsy History of total hysterectomy History of tonsillectomy and adenoidectomy Family History Family History Grandparent Hypertension Mother Family history of diabetes mellitus in first degree relative Other Diabetes mellitus Family history of allergic disorder Family history of arthritis Family history of cardiovascular disease Family history of malignant neoplasm Family history of malignant neoplasm of breast Family history of malignant neoplasm of male breast Family history of neuropathy Family history of osteoporosis Social History Social History Smoking packs per day: 0.25 Smoking cigarettes per day: 5.0 Years smoked: 15 Smoking pack-years: 3.75 Smoking status: Former smoker Tobacco type: cigarettes Second hand tobacco smoke exposure: No Smoking end date: 06/06/05 Alcohol intake: current Alcohol use details: very rare use Substance use: never Substance use type: does not use Lack of Transportation: No Lack of Food: Never True Current Housing: I Have Housing Concerned About Future Housing: No Difficulty Paying Gas/Electric Bills: No Difficulty Paying for Meds: No Currently Unemployed: No Living arrangements: alone Occupation/Education: occupation 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 There is no relevant family history pertinent to the presenting complaint. Exam Const: General: cooperative, healthy appearing, comfortable, no acute distress and well nourished Nutritional Appearance: well nourished Orientation/consciousness: patient oriented x3 Limitations: no limitations HENMT: Head: normal to inspection, normocephalic and atraumatic Ears: hearing grossly normal bilaterally, external ears normal, TM's normal bilaterally, EAC's normal and no periauricular adenopathy Face/Nose/Sinus: Normal external nose present, Abnormal mucous membranes and turbinates present erythematous bilateral and diffuse, normal facial exam, sinuses nontender and face symmetric Face and sinus: normal facial exam, sinuses nontender and face symmetric Mouth: Yes Normal oral and palatal mucosa present, Yes lip normal, Yes tongue normal, Yes Normal salivary glands and ducts present, Yes oropharynx normal and Yes moist mucous membranes Teeth and gingiva: dentition normal Throat: posterior oropharynx normal, tonsils normal and uvula midline Eyes: General: appearance normal, both eyes and all related structures Alignment and Position: alignment normal and position normal Periorbital: periorbital findings normal Eyelids: eyelids normal Pupils: Equal, round and reactive pupils present Neck: Neck: normal visual inspection, full ROM, no lymphadenopathy and supple Chest: Chest palpation & inspection: normal inspection of the chest and normal palpation of entire chest wall Resp: Effort & Inspection: normal respiratory effort, able to speak in complete sentences and Actively coughing dry Auscultation: clear to auscultation bilaterally, no crackles, no rales, no rhonchi and no wheezes Cardio: Rate: regular rate Rhythm: regular rhythm Heart sounds: S1 normal heart sound present and S2 normal heart sound present GI: Inspection: normal to inspection Skin: General skin exam: normal color and no rashes or lesions noted Rashes: rashes noted diffuse truncal size (0.25 cm circles), arrangement (Sporadic), borders sharp and color red; nontender Neuro: General: patient oriented x3 and moves all extremities Cranial nerves: Yes Equal, round and reactive pupils present Speech: normal speech Gait exam (Neuro): Normal gait present Extrem: General: normal to inspection, full ROM and no edema Psych: Appearance: grossly normal and well kempt Mental Status: mental status grossly normal Speech and movement: Normal speech and movement present Affect: normal affect Attitude: cooperative Thought process: Normal thought process present Course Course Emergency Course: Discharge instructions reviewed with patient, as well as provided in writing per nursing staff. The instructions also include specific and strict return/GO TO THE ER as well as f/u information. All questions have been answered, and the patient deny any further questions with discharge and discharge plan. Portions of this record may have been created with voice recognition software Level of Care: Express Care Visit Vital Signs Vital signs: Reviewed MDM - URI/Sore Throat MDM Narrative Medical decision making narrative: Pt well hydrated appearing, in no respiratory distress, hemodynamically stable. Recommend supportive care. The patient is stable at time of discharge the clinical impression was discussed and the patient was given the opportunity to ask questions, which were addressed as completely as possible given the information available at present. Anticipatory guidance and return to care precautions were discussed and the importance of primary care follow-up was stressed and encouraged. The patient voiced understanding of the plan, indications to return, and the need for follow-up. Differential diagnosis considered: Mccoy virus, strep pharyngitis, allergic rhinitis, upper respiratory tract infection, sinusitis, rhinosinusitis, nasopharyngitis. viral pharyngitis, otitis media, otitis externa, otitis effusion, foreign body, cerumen impaction, viral syndrome, and influenza.? Exam findings show no acute concerns or changes; patient is non-toxic appearing and is in no distress.? Patient is appropriate for outpatient treatment and follow-up.? Medical Records Attestation: I reviewed the patient's medical records. Discharge Plan Discharge Clinical Impression: Upper respiratory infection with cough and congestion Patient Disposition: Home, Self-Care Condition: Stable Instructions: Upper Respiratory Infection (ED) Additional Instructions: Take steroids per package instructions. Use Tessalon Perles as needed for cough. Use inhaler with spacer as needed. Other symptomatic treatments include: -Alternate Tylenol and Motrin per package directions for fever or pain: Tylenol 650-1000mg by mouth every 4-6 hours. Do not exceed 4000mg in 24 hours. Advil (Ibuprofen) 600 mg by mouth every 6 hours. Do not exceed 2400mg in 24 hours. 8 AM: Tylenol 11 AM: Ibuprofen 2 PM: Tylenol 5 PM: Ibuprofen 8 PM: Tylenol 11 PM: Ibuprofen 2 AM: Tylenol 5 AM: Ibuprofen -Antihistamine medication such as Benadryl at night and Zyrtec/Claritin/Viji during the day can help improve symptoms. -Use Flonase twice a day for 5 days then daily to help reduce the inflammation and dry up your sinuses. -You can also use Sudafed or Mucinex. Be sure to drink plenty of water with these medications at least 8 ounces with every dose and it is important to drink 8 to 10 glasses of water per day. Water is a natural decongestant -Eat and drink things that are easy to swallow, like tea or soup, or popsicles. -Oral rinses such as: Salt water gargles and/or may use topical anesthetic (eg. Chloraseptic spray) or lozenges to relieve dryness or throat pain). -Frequent hand washing or hand white sugar supervisor is one of the best ways to prevent spread of infection. -Using a vaporizer or humidifier at night will also help thin secretions and help with coughing up phlegm. -Follow up with primary care provider in 3-5 days if condition is not improving - For new or worsening symptoms go directly to the nearest ER Patient Language: Sudanese Prescriptions: New (DME) Aerochamber MV Spacer See Rx Instructions .Route Qty: 1 0RF Rx Instructions: As directed benzonatate 100 mg capsule 100 mg PO BID PRN (Reason: cough) Qty: 14 0RF methylprednisolone [Medrol (Tobi)] 4 mg tablets,dose pack See Rx Instructions .ROUTE .COMPLEX Qty: 21 0RF Rx Instructions: orally per package directions albuterol sulfate 90 mcg/actuation HFA aerosol inhaler 2 puff inhalation QID PRN (Reason: shortness of breath or wheezing) Qty: 6.7 0RF No Action escitalopram oxalate [Lexapro] 10 mg tablet 10 mg PO DAILY cholecalciferol (vitamin D3) 50 mcg (2,000 unit) capsule 50 mcg PO DAILY alprazolam [Xanax] 0.5 mg tablet 0.5 mg PO QHS PRN (Reason: Anxiety) loratadine [Claritin] 10 mg tablet 10 mg PO DAILY ibuprofen 400 mg Tablet 400 mg PO BID estradiol 2 mg tablet 2 mg PO DAILY Qty: 90 0RF Follow-up/Referrals: Louis,DO Benjamin [Primary Care Provider] - 3 Days Stand Alone Forms: Work/School Release IP Time of Disposition: 14:48
[2024-06-29 14:41] VITALS: BP 102/56; PULSE 73; RESP 16; TEMP 36.9; O2SAT 99
== END 2024-06-29 14:54 | disposition home or self-care (01) ==
PROVIDERS: Emergency Provider Nurse Practitioner Family; PCP Student in an Organized Health Care Education/Training Program
DX: J06.9 Acute upper respiratory infection, unspecified (principal); F41.9 Anxiety disorder, unspecified; Z87.891 Personal history of nicotine dependence
CPT/HCPCS: 99213; G0463

== ENCOUNTER 2024-07-13 14:42 | Outpatient (CLI) | payer OTHER, SELFPAY ==
--- NOTE | ~2024-07-13 | XR_ITS ---
CHEST RADIOGRAPH, PA AND LATERAL CLINICAL HISTORY: shortness of breath . COMPARISON: 06/27/2017 TECHNIQUE: PA and lateral views of the chest. FINDINGS The cardiomediastinal silhouette is unremarkable. Scattered calcified granulomas, unchanged from 2018. The remainder of the lungs are clear. Visualized osseous structures and soft tissues are unremarkable. IMPRESSION: No focal infiltrate or effusion. Reviewed, dictated and finalized at location A. TRUCK DRIVER
--- OUTSIDE RECORDS SUMMARY | 2024-07-13 14:45 | XMS_ITS | Encounter Summary ---
Author Organization [facility] Address [address] [place] [address] Care Team Providers Care Mapping Engineer Name Role Phone Benjamin Myers DO Primary Care Provider + Reason for Visit * Reason Onset Date Comments Orders 07/13/2024 Encounter Details Date Type Department Care Team (Late st Contact Info) Description 07/13/2024 Telephone [facility] Family & Internal Medicine [facility] [address] [place] [address] Benjamin Myers DO [address] [place] [address] Orders Social History Tobacco Use Types Packs/Day Years Used Date Smoking Tobacco: Light Smoker Cigarettes 0.3 20 Passive Smoke Exposure: Never Smokeless Tobacco: Never Comments:About a pack of cig arettes in a month. Alcohol Use Standard Drinks/Week Comments Not Currently 0 (1 standard drink = 0.6 oz pur e alcohol) AUDIT-C Answer Date Recorded Q1: How often do you have a drink containing alc ohol? 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 Please advise. Pt also asking for call back as she has fax machine near her that she would like order faxed to. K MANAGER K MANAGER * Ellie Owens - 07/13/2024 9:51 AM CST Patient was seen at on 06/29/24 for flu sx. Patient was given Tessalon Pearles and steroids. Patient is better except for the deep chest cough.Patient works at [employer] and can be checked there so does not want to schedule an appt. Patient is requesting Cough syrup with codine and a chest xray ordered for [facility] [address] in [place]. K MANAGER documented in this encounter Plan of Treatment Upcoming Encounters Date Type Department Care Team (Late st Contact Info) Description 08/20/2024 3:00 PM CDT Office Visit [facility] Family & Internal Medicine [facility] [address] [place] [address] Benjamin Myers DO [address] [place] [id number] documented as of this encounter Visit Diagnoses Not on filedocumented in this encounter Care Teams Mapping Engineer Relationship Specialty Start Date End Date Benjamin Myers DO [address] [place] [id number] PCP - General FAMILY PRACTICE 02/24/22 documented as of this encounter
--- OUTSIDE RECORDS SUMMARY | 2024-07-13 14:45 | XMS_ITS | Clinical Summary ---
Author Organization [facility] Address [address] [place] [id number] Care Team Providers Care Windshield Technician Name Role Phone Louis Benjamin Jarred CAMARENA Primary Care Provider + Allergies Active Allergy Reactions Criticality Noted Date Comments Plascencia Flavoring Agent (Non-Screening) Anaphylaxis High 06/25/2023 Penicillins Rash,Other (see comment) Low 07/16/2020 Sulfa Antibiotics Rash Low 07/16/2020 Sulfanilamide Other (see comment) 06/25/2023 Medications estradiol 2 MG tablet Take 1 tablet (2 mg total) by mouth daily. 1 Active vitamin D3, cholecalciferol , 10 mcg tablet Take 1 tablet (10 mcg total) by mouth daily. Active loratadine (CLARITIN) 10 MG tablet Take 1 tablet (10 mg total) by mouth daily. Active famotidine (PEPCID) 20 MG tablet Take 1 tablet (20 mg total) by mouth 2 (two) times daily as needed. Active menthol (BIOFREEZE) 4 % topical gel Apply topically as needed for Mild pain (Scale 1 - 3). Active acetaminophen (TYLENOL) 325 MG tablet Take 2 tablets (650 mg total) by mouth every 6 (six) hours as needed for Pain. Active meloxicam (MOBIC) 7.5 MG tablet Take 1 tablet (7.5 mg total) by mouth daily. 30 tablet 5 4 Active ALPRAZolam (XANAX) 0.5 MG tabletIndicatio ns:Generalized anxiety disorder TAKE 1 TABLET BY MOUTH DAILY NEEDED FOR SLEEP 30 tablet 2 4 Active escitalopram (LEXAPRO) 10 MG tabletIndicatio ns:Generalized anxiety disorder Take 1 tablet (10 mg total) by mouth daily. 90 tablet 3 5 Active Active Problems Problem Noted Date Diagnosed Date Myalgia 02/09/2024 Generalized anxiety disorder 11/22/2022 Cervical radiculopathy 11/22/2022 Chronic left shoulder pain 11/22/2022 Vitamin D deficiency 05/24/2022 Encounters Date Type Department Care Team Description 07/13/2024 Telephone [facility] Family & Internal [address] [phone] Benjamin Myers, DO Orders 06/29/2024 Scan [facility] Scanned, [facility] 06/12/2024 Telephone [facility] Internal [address] [phone] Benjamin Myers, DO Lab Results 05/25/2024 Scan [facility] Scanned, [facility] Lab (SCAN) from Last 3 Months Immunizations Name Administration Dates Next Due Fluzone 6 Months+ Quad (0.5 mL Prefilled Syringe ) 03/06/2022 Influenza (Generic) 03/10/2022,03/18/2021 Influenza Adult (Generic) 04/06/2023 PFIZER COVID-19 (ORIGINAL FO RMULATION, PURPLE CAP) mRNA, LNP-S, PF, 30 MCG/0.3 ML DOSE 05/04/2021,04/13/2021 Tdap (Generic) 02/08/2015 Family History Medical History Relation Comments Cancer Father Hodgkin's Lympho ma Early Father Cancer Maternal Aunt Breast Heart Disease Maternal Grandfather Cancer Maternal Grandmother Pancreatic Cancer Maternal Uncle Pancreatic Cancer Mother skin Diabetes Mother Relation Status Comments Father Maternal Aunt Maternal Grandfather Maternal Grandmother Maternal Uncle Mother Social History Tobacco Use Types Packs/Day Years Used Date Smoking Tobacco: Light Smoker Cigarettes 0.3 20 Passive Smoke Exposure: Never Smokeless Tobacco: Never Tobacco Cessation:Ready to Q uit: No; Counseling Given: Yes Comments:About a pack of cigarettes in a month. 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 Gender Identity Not on file Sexual Orientation Straight 02/24/2022 1: 25 PM CDT Occupation Industry Job Start Date Job End Date Not on file Not on file Not on file Not on file Last Filed Vital Signs Vital Sign Reading Time Taken Comments Blood Pressure 103/63 03/14/2024 7:55 AM CDT Pulse 80 03/14/2024 7:55 AM CDT Temperature 36.3 C (97.4 F) 03/14/2024 7:55 AM CDT Respiratory Rate 20 03/14/2024 7:55 AM CDT Oxygen Saturation 97% 03/14/2024 7:55 AM CDT Inhaled Oxygen Concentration - - Weight 71.7 kg (158 lb) 03/14/2024 7:55 AM CDT Height 175.3 cm (5' 9 ) 03/14/2024 7:55 AM CDT Body Mass Index 23.33 03/14/2024 7:55 AM CDT Plan of Treatment Upcoming Encounters Date Type Department Care Team (Late st Contact Info) Description 08/20/2024 3:00 PM CDT Office Visit [facility] Family & Internal Medicine [facility] [address] [place] [phone] Benjamin Myers, [address] [place], [place] [id number] Health Maintenance Due Date Last Done Comments Annual Physical 09/09/1979 Hepatitis B Vaccines (1 of 3 - 19+ 3-dose series) 09/09/1995 Influenza Adult (#1) 2024 04/06/2023, 03/10/2022, 03/06/2022, Additional history exists PHQ-2 (Physician [place]) 06/06/2024 08/08/2023 Mammogram Screening 08/29/2024 08/30/2023, DTaP, Tdap and Td Vaccines (2 - Td or Tdap) 02/08/2025 02/08/2015 COVID-19 Vaccine (3 - season) 2025 05/04/2021, 04/13/2021 Postponed from 02/05/2024 (Going to Outside Clinic) Pneumococcal Vaccine: Pediatrics (0 to 5 Years) and At-Risk Patients (6 to 64 Years) (1 of 2 - PCV) 02/18/2025 Postponed from 1982 (Patient Refused) Colorectal Cancer Screening Colonoscopy (10 Years) 03/18/2028 03/18/2023 Hepatitis C Completed 02/26/2022 Meningococcal B Vaccine Aged Out No l onger eligible based on patient's age to complete this topic Meningococcal Vaccine Aged Out No lionel joni eligible based on patient's age to complete this topic RSV Immunizations Under 20 Months Aged Out No longer eligible based on patient's age to complete this topic Procedures Procedure Name Priority Date/Time Associated Diagnosis Comments OUTSIDE LAB (SCAN ORDER) 05/25/2024 OUTSIDE LAB (SCAN ORDER) 05/25/2024 VITAMIN D, 25 OH Routine 05/25/2024 12:0 0 AM TRIAGE REGISTER NURSE Vitamin D deficiency Annual physical exam Screening for lipid disorders Screening for endocrine, metabolic and immunity disorder TSH W/REFLEX Routine 05/25/2024 12:00 AM TRIAGE REGISTER NURSE Annual physical exam Screening for lipid disorders Screening for endocrine, metabolic and immunity disorder MAMMOGRAM GENERIC (SCAN ORDER) 08/30/2023 COLONOSCOPY GENERIC (SCAN ORDER) 03/18/2023 HEPATITIS C ANTIBODY Routine 02/26/2022 12:00 AM CDT Annual physical exam Need for hepatitis C screening test from Last 3 Months or Most Recently Relevant to Health Maintenance Results * TSH W/REFLEX (05/25/2024 12:00 AM TRIAGE REGISTER NURSE) 05/25/2024 us Benjamin Myers DO LABORATORY Final Re sult [facility] * OUTSIDE LAB (SCAN ORDER) (05/25/2024) Only the most recent of2 resultswithin the time period is included. 05/25/2024 [facility] Scanned SCANNING Final Resu lt * VITAMIN D, 25 OH (05/25/2024 12:00 AM TRIAGE REGISTER NURSE) 05/25/2024 Benjamin Myers DO LABORATORY Final Re sult Performing Organization Address [facility] Co de Phone Number [facility] * MAMMOGRAM GENERIC (SCAN ORDER) (08/30/2023) Anatomical Region Laterality Modality Other 08/30/2023 Result [facility] Scanned SCANNING Final Resu lt * COLONOSCOPY GENERIC (03/18/2023) 03/18/2023 Result [facility] Scanned SCANNING Final Resu lt * HEPATITIS C AB ([facility] ONLY) (02/26/2022 12:00 AM CDT) 02/26/2022 Benjamin Myers DO LABORATORY Final Re sult Performing Organization Address [facility]/ZIP Co de Phone Number [facility] ON[facility] from Last 3 Months or Most Recently Relevant to Health Maintenance Insurance R Care Teams Windshield Technician Relationship Specialty Start Date End Date Benjamin Myers DO [address] [place] [id number] PCP - General FAMILY PRACTICE 02/24/22
== END 2024-07-13 14:43 | disposition home or self-care (01) ==
PROVIDERS: PCP Student in an Organized Health Care Education/Training Program; Visit Provider Surgery
DX: R06.02 Shortness of breath (principal)
CPT/HCPCS: 71046

== ENCOUNTER 2024-11-23 15:16 | Outpatient (CLI) | payer OTHER, SELFPAY ==
--- NOTE | ~2024-11-23 | MM_ITS ---
EXAMINATION: MM screening trace BI w koffi HISTORY: Screening TECHNIQUE: Craniocaudal and mediolateral oblique 3-D tomosynthesis images were obtained and synthetic 2-D images were generated. CAD analysis was submitted and interpreted. COMPARISON: Comparison to multiple prior studies sequentially, with oldest reviewed study dated 08/2016. BREAST PARENCHYMAL COMPOSITION: Dense: The breasts are heterogeneously dense, which may obscure small masses FINDINGS: There is no evidence of suspicious mass, calcification, or architectural distortion to sugg est malignancy in either breast. There has been no suspicious interval change. IMPRESSION: 1. No mammographic evidence of malignancy. 2. Recommend routine screening mammography in one year. BI-RADS Category 1: Negative Reviewed, dictated and finalized at location A.
== END 2024-11-23 15:17 | disposition home or self-care (01) ==
LOC: ANHIMG 15:17
PROVIDERS: PCP Student in an Organized Health Care Education/Training Program; Visit Provider Obstetrics & Gynecology
DX: Z12.31 Encounter for screening mammogram for malignant neoplasm of breast (principal)
CPT/HCPCS: 77063; 77067

== ENCOUNTER 2025-02-06 14:35 | Outpatient (CLI) | payer OTHER, SELFPAY ==
--- NOTE | ~2025-02-06 | XR_ITS ---
EXAMINATION: XR cervical spine 4-5V DATE: 02/06/2025 15:13 INDICATION: Radiculopathy, cervical region TECHNIQUE: 6 images of the cervical spine were obtained. COMPARISON: 11/22/2022 FINDINGS: Straightening of the normal cervical lordosis. Predental space is within normal limits. No prevertebral soft tissue swelling. Mild intervertebral disc space narrowing at the C6-C7 and C7-T1 levels. Degenerative change in the cervical facet joints and uncovertebral joints. No abnormal subluxation with flexion or extension. Lateral dental intervals are within normal limits. IMPRESSION: 1. Straightening of the normal cervical lordosis. 2. Mild intervertebral disc space narrowing at the C6-C7 and C7-T1 levels. If symptoms persist or worsen, consider an MRI of the cervical spine for further assessment Reviewed, dictated and finalized at location Q. IMPRESSION: 1. Straightening of the normal cervical lordosis. 2. Mild intervertebral disc space narrowing at the C6-C7 and C7-T1 levels. If symptoms persist or worsen, consider an MRI of the cervical spine for furthe r assessment
--- NOTE | ~2025-02-06 | MR_ITS ---
EXAMINATION: MR cervical spine wo con DATE: 02/06/2025 14:59 INDICATION: Cervical radiculopathy TECHNIQUE: Magnetic resonance imaging (MRI) of the cervical spine was performed without intravenous contrast. Sequences included sagittal T2-weighted FSE, sagittal T2-weighted FS FSE, sagittal T1-weighted FSE, axial MERGE and axial T2- weighted FSE. COMPARISON: 12/14/2022 FINDINGS: 8 degrees lower cervical dextrocurvature with partially visualized. Sagittal alignment is normal. Vertebral body heights are normal. Bone marrow signal intensity is normal. Moderate disc height loss at C6-C7 with annular fissure and chronic central disc extrusion which will be further detailed below. Cord signal intensity is normal. Visualized portions of the cervical soft tissues are unremarkable. The following disc levels are specifically discussed: C2-C3: The disc does not extend beyond the endplate margin. There is no uncovertebral joint osteoarthritis. There is mild bilateral facet joint osteoarthritis. There is no neural foraminal stenosis. There is no central canal stenosis. C3-C4: The disc does not extend beyond the endplate margin. There is no uncovertebral joint osteoarthritis. There is mild right and moderate left facet joint osteoarthritis. There is no neural foraminal stenosis. There is no central canal stenosis. C4-C5: The disc does not extend beyond the endplate margin. There is mild bilateral uncovertebral joint osteoarthritis. There is mild right and moderate left facet joint osteoarthritis. There is no neural foraminal stenosis. There is no central canal stenosis. C5-C6: Disc is minimally bulging. There is mild bilateral uncovertebral joint osteoarthritis. There is mild left facet joint osteoarthritis. There is mild left neural foraminal stenosis. There is no central canal stenosis. C6-C7: Annular fissure and unchanged central disc extrusion. There is moderate bilateral uncovertebral joint osteoarthritis. There is mild right and moderate left facet joint osteoarthritis. There is mild bilateral, left greater than right neural foraminal stenosis. There is mild central canal stenosis. C7-T1: The disc does not extend beyond the endplate margin. There is mild bilateral uncovertebral joint osteoarthritis. There is moderate left and severe right facet joint osteoarthritis. There is mild bilateral neural foraminal stenosis. There is no central canal stenosis. IMPRESSION: 1. Mild to moderate cervical spondylosis. Reviewed, dictated and finalized at location A.
== END 2025-02-06 14:36 | disposition home or self-care (01) ==
LOC: MICIMG 14:36
PROVIDERS: PCP Student in an Organized Health Care Education/Training Program; Visit Provider Nurse Practitioner Adult Health
DX: M47.812 Spondylosis without myelopathy or radiculopathy, cervical region (principal)
CPT/HCPCS: 72050; 72141

== ENCOUNTER 2025-05-09 15:37 | Outpatient (CLI) | payer OTHER, SELFPAY ==
--- NOTE | ~2025-05-09 | CT_ITS ---
EXAMINATION: CT cervical spine wo con COMPARISON: None HISTORY: M47.812 - Spondylosis without myelopathy or radiculopathy... TECHNIQUE: Axial images were obtained through the spine without IV contrast. Coronal, sagittal reconstruction images were obtained from the axial views. CT scan performed using dose optimization techniques including the following automated exposure control; adjustment of mA and/or kV; use of iterative reconstruction technique. Automatic exposure control was used to reduce radiation dose. Permanent radiation dose record is archived to PACS. FINDINGS: Grade 1 anterolisthesis of C3 on C4 C4 C5, no fracture is identified. Moderate loss of disc height at C6-7 with disc osteophyte complex producing moderate canal and foraminal stenosis. Soft tissues unremarkable. Impression: 1. Degenerative changes detailed above. MRI suggested to assess Reviewed, dictated and finalized at location P. 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 Degenerative changes detailed above. MRI suggested to assess
== END 2025-05-09 15:38 | disposition home or self-care (01) ==
PROVIDERS: PCP Student in an Organized Health Care Education/Training Program; Visit Provider Neurological Surgery
DX: M43.12 Spondylolisthesis, cervical region (principal)
CPT/HCPCS: 72125

== ENCOUNTER 2025-05-17 13:39 | Outpatient (CLI) | payer OTHER, SELFPAY ==
--- NOTE | ~2025-05-17 | MR_ITS ---
EXAM/PROCEDURE: MR brain/brain stem wo/w con HISTORY: H53.9 - Unspecified visual disturbance COMPARISON: None available. TECHNIQUE: Pre and postcontrast enhanced brain MRI performed FINDINGS: No restricted diffusion or acute ischemic event. No abnormal enhancing lesions or masses on postcontrast series. No mass, mass effect or hemorrhage. Brandon-white signal pattern preserved. Brainstem and cerebellum appear normal. Orbital and periorbital structures appear symmetric and within normal limits. Vascular flow voids patent at the skull base. 10 mm size T2-weighted hyperintense nonenhancing cystic lesion posterior to the right maxillary sinus image 7 series 7 probably represents sphenoid sinus mucocele or mucous retention cyst. 8 mm cystic lesion present in the inferomedial left maxillary sinus. IMPRESSION: No discrete lesion or abnormality seen to explain source of visual disturbances. No acute ischemic event, mass or hemorrhage. Bilateral cystic lesions in the paranasal sinus regions probably represent mucoceles or mucous retention cysts. Correlation with paranasal sinus CT suggested for complete evaluation. Reviewed, dictated and finalized at location A. 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 No acute ischemic event, mass or hemorrhage. Bilateral cystic les ions in the paranasal sinus regions probably represent mucoceles or mucous rete ntion cysts. Correlation with paranasal sinus CT suggested for complete evaluat ion.
== END 2025-05-17 13:40 | disposition home or self-care (01) ==
PROVIDERS: PCP Student in an Organized Health Care Education/Training Program; Visit Provider Neurological Surgery
DX: H53.9 Unspecified visual disturbance (principal)
CPT/HCPCS: 70553; A9577

== ENCOUNTER 2025-05-28 15:30 | Outpatient (RCR) | payer OTHER, SELFPAY ==
--- NOTE | 2025-04-03 16:24 | OPREHPOC ---
Outpatient Therapy Plan of Care This is a Multidisciplinary Plan of Care that may contain components documented by all disciplines (PT, OT, and ST.) PT Problem 1 PT Problem #1 Knowledge Deficit PT Goal 1 Goal / Goal Update *independent with HEP Target Visit 12 PT Problem 2 PT Problem #2 Pain PT Goal 1 Goal / Goal Update 1* pt report pain rating at worst of 6/10 2* radicular pain to L mid forearm at worst 3* pt report sleeping awaken 1x/night due to pain Target Visit 12 PT Problem 3 PT Problem #3 Impaired Range of Motion PT Goal 1 Goal / Goal Update improve ROM of neck and shoulder, to improve driving, home tasks, reaching overhead and self care 1* L shoulder active ROM 145' 2* cervical rotation to L 65' Target Visit 12 PT Problem 4 PT Problem #4 Impaired Strength PT Goal 1 Goal / Goal Update improve [id number] strength to 4 /5, to improve posture and positioning Target Visit 12
--- NOTE | 2025-04-03 16:24 | PTOPEVAL1 ---
Assessment and note entered by Shahida Zavaleta, PT Evaluation Information Assessment Status Evaluation ICD-10 Condition Codes (PT) Cervicalgia M54.2,Radiculopathy, cervical M54.13 Onset 2 years ago Subjective Information chronic issues with neck pain, gradually increase in pain and into L arm have had PT in the past, helped pain some with manual therapy, stim and dry needling also under care of pain management- to have injection Apr 15; previous injections: first helped, others not help, also had trigger point injections- not help; under care of neurosurgeon- have discussed surgery , going to have PT, injections and another CT scan before determine surgery or not activity: 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, 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 Radicular pain is constant to L elbow and intermittent to L 5th finger. She has been receiving pain management treatments and under the care of neurosurgeon. Neck Index rating of 50% limitation in activity level. Sleeping and activity level are disrupted due to pain. With the evaluation: reports most pain increase with L shoulder flexion and cervical rotation to the L; decreased ROM of L shoulder flexion and abduction motions and cervical rotation to the L; poor posture with forward head and rounded shoulders; weakness of [id number] complex. Skilled PT services are indicated for modalities to decrease pain and spasms; therapeutic exercises to increase strength and flexibility of neck and L shoulder with education for HEP, posture, body mechanics and self management of pain. Plan of Care Interventions Electrical Stimulation,Hot Pack/Cold Pack,Manual Therapy,Mechanical Traction,Patient/Caregiver Education,Therapeutic Activities,Therapeutic Exercise,Ultrasound,Other Other Interventions taping, dry needle--discussed with her PT Services Indicated Yes Treatment Frequency and 2x/wk for 12 visits Duration These treatments will address the objective and functional deficits as defined above. The patient will be advanced safely and appropriately in order for the patient to progress towards his/her prior level of function. Additional exercises will be introduced and as well as a comprehensive home exercise program upon discharge, if needed, ?to ensure carryover of functional gains achieved in the clinic. This treatment plan has been reviewed and agreement upon by the patient.
--- NOTE | 2025-05-09 16:13 | PCPTNOTE ---
Pt had to cancel today due to work.
--- NOTE | 2025-05-28 16:19 | OPREHPOC ---
Outpatient Therapy Plan of Care This is a Multidisciplinary Plan of Care that may contain components documented by all disciplines (PT, OT, and ST.) PT Problem 1 PT Problem #1 Knowledge Deficit PT Goal 1 Goal / Goal Update *independent with HEP 05-28-25 d/c goal met Target Visit 12 Progress Met PT Problem 2 PT Problem #2 Pain PT Goal 1 Goal / Goal Update 1* pt report pain rating at worst of 6/10 2* radicular pain to L mid forearm at worst 3* pt report sleeping awaken 1x/night due to pain 05-28-25 d/c goal 1 met; #2 is L 5th finger; #3 is 2x/night; Target Visit 12 Progress Partially Met PT Problem 3 PT Problem #3 Impaired Range of Motion PT Goal 1 Goal / Goal Update improve ROM of neck and shoulder, to improve driving, home tasks, reaching overhead and self care 1* L shoulder active ROM 145' 2* cervical rotation to L 65' 05-28-25 d/c goals not met #1 is 140'; #2 is 50' Target Visit 12 Progress Not Met PT Problem 4 PT Problem #4 Impaired Strength PT Goal 1 Goal / Goal Update improve [id number] strength to 4 /5, to improve posture and positioning 05-28-25 d/c goal met Target Visit 12
--- NOTE | 2025-05-28 16:19 | PTOPDC ---
Assessment and note entered by Shahida Zavaleta, PT Assessment Status Discharge ICD-10 Condition Codes (PT) Cervicalgia M54.2,Radiculopathy, cervical M54.13 Onset 2 years ago Subjective Information feeling about the same, have learned some new thing to work on with posture and position; doing all the exercises; saw the dr and going to have a nerve conduction test and possible ablation; have been having sinus issues and vision changes; had MRI of brain, going to see and ENT about it; Reported Pain Level Pain Score 3: Self Report Additional Pain Score Comments pain range in the past week 2-6/10; intermittent pain into L UE to 5 finger & constant dull ache to distal to elbow; L cervical, upper traps and thoracic areas increase pain: driving, stress, lifting arm over head and tighten shoulder; lifting; working decrease pain: ice, gabapentin for sleeping; lie down in bed; meloxicam and tylenol PRN sleeping awaken due to neck pain average about 2x/ night migraine about every 3 months Assessment PT Clinical Summary Vernell has received 10 PT sessions. Compare today's assessment with initial evaluation : pain rating from 2-8/10 to 2-6/10; self assessment with Neck index rating from 50 to 38% limitation in activity level; radicular pain is the same, into L UE constant to below elbow and intermittent into L 5th finger; reported sleeping awaken 2x/night is the same; L shoulder flexion and abduction and cervical rotation R and L ranges are the same or within 5'; continues to have pain and pulling increase with L shoulder flexion and abduction and cervical rotation to L; increase in scapular-thoracic strength with improved posture; education for HEP, posture and pain control techniques. Modalities of electrical stim, US, manual have given her temporary pain relief. The goals were partially met. Discharge PT services. She is to continue with HEP, posture monitor and pain management. Plan of Care PT Services Indicated No
== END 2025-05-28 16:35 | disposition home or self-care (01) ==
LOC: ANHPT 15:30
PROVIDERS: PCP Student in an Organized Health Care Education/Training Program; Visit Provider Neurological Surgery
DX: M47.812 Spondylosis without myelopathy or radiculopathy, cervical region (principal)
CPT/HCPCS: 97012; 97014; 97035; 97110; 97140; 97161; 97530; G0283